=== PATIENT | female | born 1940 | race Two or more races ===

== ENCOUNTER 2017-11-09 04:16 | Emergency (ER) | payer OTHER ==
--- NOTE | 2017-11-09 04:44 | ER ---
Nurse's Notes [facility] Name: Héctor Vail Age: 77 yrs Sex: Female : 1940 Arrival Date: 11/09/2017 Time: 04:21 Bed 5 Private MD: Liane Benitez C Diagnosis: Other chest pain;Gastro-esophageal reflux disease;Unspecified kidney failure Presentation: 11/09 04:22 Presenting complaint: Patient states: "I am having chest pain and my stomach hurts, my bs1 chest started hurting at midnight and my stomach yesterday around 3pm." Patient denies chest pain radiating, denies numbness or tingling. 04:22 Transition of care: patient was not received from another setting of care. Onset of bs1 symptoms was November 09, 2017. Risk Assessment: Do you want to hurt yourself or someone else? Patient reports no desire to harm self or others. Initial Sepsis Screen: Does the patient meet any 2 criteria? No. Patient's initial sepsis screen is negative. Does the patient have a suspected source of infection? No. Patient's initial sepsis screen is negative. Care prior to arrival: Medication(s) given: mylanta/omperazole. 04:22 Method Of Arrival: Wheelchair bs1 04:22 Acuity: JUICE 3 bs1 Historical: - Allergies: 04:52 No Known Allergies; bs1 - Home Meds: 04:52 losartan 50 mg oral tab [Active]; levothyroxine 50 mcg tab 1 tab once daily [Active]; bs1 amlodipine 5 mg tab 1 tab once daily [Active]; metoprolol tartrate 25 mg Oral tab 1 tab 2 times per day [Active]; - PMHx: 04:52 High Cholesterol; Hypertension; Hypothyroidism; bs1 - PSHx: 04:52 bilateral knee replacement; Tubal ligation; bs1 - Immunization history:: Adult Immunizations up to date. - Social history:: Smoking status: Patient/guardian denies using tobacco. - Family history:: not pertinent. - Ebola Screening: : Patient negative for fever greater than or equal to 101.5 degrees Fahrenheit, and additional compatible Ebola Virus Disease symptoms Patient denies exposure to infectious person. Screenin:18 Abuse screen: Denies threats or abuse. Denies injuries from another. Nutritional bs1 screening: No deficits noted. Tuberculosis screening: No symptoms or risk factors identified. Fall Risk None identified. Assessment: 04:30 General: Appears in no apparent distress. uncomfortable, Behavior is calm, cooperative, bs1 appropriate for age. Pain: Complains of pain in left lower quadrant and right lower quadrant, mid chest/epigastric area Pain does not radiate. Pain began at midnight. 04:30 Neuro: Level of Consciousness is awake, alert, obeys commands, Oriented to person, bs1 place, time, situation, Appropriate for age. Cardiovascular: Reports chest pain, shortness of breath, Denies nausea, Heart tones S1 S2 present Capillary refill < 3 seconds Patient's skin is warm and dry. Respiratory: Airway is patent Trachea midline Respiratory effort is even, unlabored, Respiratory pattern is regular, symmetrical, Breath sounds are clear bilaterally. GI: Abdomen is round non-distended, Bowel sounds present X 4 quads. Abdomen is tender to palpation in left lower quadrant and right lower quadrant Reports lower abdominal pain, epigastric pain, heartburn. : No signs and/or symptoms were reported regarding the genitourinary system. EENT: No signs and/or symptoms were reported regarding the EENT system. Derm: Skin is intact, Skin is pink, warm \\T\\ dry. normal. Musculoskeletal: Circulation, motion, and sensation intact. Capillary refill < 3 seconds, Range of motion: intact in all extremities. 05:15 Reassessment: Patient finished PO contrast at 0505, informed CT. bs1 06:10 Reassessment: Patient appears in no apparent distress at this time. Patient and/or bs1 family updated on plan of care and expected duration. Pain level reassessed. Patient is alert, oriented x 3, equal unlabored respirations, skin warm/dry/pink. Informed patient and family pending lab results/CT scan. No further needs at this time. 07:04 Reassessment: Patient appears in no apparent distress at this time. Patient and/or ph family updated on plan of care and expected duration. Pain level reassessed. Patient is alert, oriented x 3, equal unlabored respirations, skin warm/dry/pink. Pt ambulated to restroom w/ steady gait, denies dizziness or SOB, awaiting room assignment, family at bedside. 07:40 Reassessment: Patient appears in no apparent distress at this time. Patient and/or ph family updated on plan of care and expected duration. Pain level reassessed. Patient is alert, oriented x 3, equal unlabored respirations, skin warm/dry/pink. Pt resting quietly, reports that pain has improved, denies nausea at this time, awaiting completion of IV fluids before d/c. 08:12 Reassessment: Patient appears in no apparent distress at this time. Patient and/or hb family updated on plan of care and expected duration. Pain level reassessed. Patient is alert, oriented x 3, equal unlabored respirations, skin warm/dry/pink. IV fluids complete, pt d/c home w/ family. Vital Signs: 04:30 BP 130 / 91; Pulse 80; Resp 16; Temp 97.8(T); Pulse Ox 93% on R/A; Weight 77.56 kg; bs1 Height 4 ft. 11 in. (149.86 cm); Pain 6/10; 04:45 BP 129 / 69; Pulse 75; Resp 16 S; Pulse Ox 95% on R/A; bs1 05:15 BP 115 / 68; Pulse 72; Resp 17 S; Pulse Ox 96% on R/A; bs1 05:45 BP 123 / 78; Pulse 66; Resp 16 S; Pulse Ox 94% on R/A; bs1 06:00 BP 128 / 70; Pulse 68; Resp 15 S; Temp 98(T); Pulse Ox 100% ; Pain 0/10; bs1 06:45 BP 109 / 64; Pulse 68; Resp 17; Pulse Ox 96% on R/A; bs1 04:30 Body Mass Index 34.54 (77.56 kg, 149.86 cm) bs1 ED Course: 04:21 Patient arrived in ED. al2 04:21 Liane Benitez MD is Private Physician. al2 04:22 Arm band placed on left wrist. bs1 04:25 Patient has correct armband on for positive identification. Placed in gown. Bed in low bs1 position. Call light in reach. Side rails up X 1. dietitian on. Pulse ox on. NIBP on. 04:25 Warm blanket given. bs1 04:30 EKG completed in triage. Results shown to . bs1 04:39 EKG done, by ED staff, reviewed by Damien Arteaga MD. Inserted saline lock: 20 gauge in mt right antecubital area, using aseptic technique. Blood collected. 04:43 Flakita Loera RN is Primary Nurse. bs1 04:43 Liane Benitez MD is Hospitalizing Provider. oswaldo 04:47 Triage completed. bs1 04:47 X-ray completed. Portable x-ray completed in exam room. Patient tolerated procedure kw well. 04:48 Damien Arteaga MD is Attending Physician. oswaldo 04:48 XRAY Chest (1 view) In Process Unspecified. EDMS 04:50 Oral contrast given. eh 05:18 Patient maintains SpO2 saturation greater than 95% on room air. bs1 06:47 CT completed. Patient tolerated procedure well. Patient moved to CT via stretcher. Patient moved back from CT. 07:38 Liane Benitez MD is Referral Physician. oswaldo 07:45 No provider procedures requiring assistance completed. ph 08:13 IV discontinued, intact, bleeding controlled, No redness/swelling at site. Pressure hb dressing applied. Administered Medications: 05:10 Drug: Zofran 4 mg Route: IVP; Site: right antecubital; bs1 05:22 Follow up: Response: No adverse reaction bs1 05:14 Drug: NS 0.9% 1000 ml Route: IV; Rate: 125 ml/hr; Site: right antecubital; bs1 05:14 Not Given (Patient Refused): morphine 2 mg IVP once bs1 05:15 Drug: ProTONIX 40 mg Route: IVP; Site: right antecubital; bs1 05:22 Follow up: Response: No adverse reaction bs1 06:54 Drug: NS 0.9% 500 ml Volume: 500 ml; Route: IV; Rate: 1 bolus; Site: right antecubital; bs1 07:39 Follow up: Response: No adverse reaction; IV Status: Completed infusion ph 06:54 Drug: ProTONIX 40 mg Route: IVP; Site: right antecubital; bs1 07:40 Follow up: Response: No adverse reaction ph 07:39 Drug: NS 0.9% 500 ml Route: IV; Rate: bolus; Site: right antecubital; ph 08:13 Follow up: Response: No adverse reaction; IV Status: Completed infusion hb Outcome: 04:44 Decision to Hospitalize by Provider. oswaldo 07:38 Discharge ordered by . oswaldo 08:13 Discharged to home via wheelchair, with family. hb 08:13 Condition: good 08:13 Discharge instructions given to patient, family, Instructed on discharge instructions, follow up and referral plans. medication usage, Demonstrated understanding of instructions, follow-up care, medications, Prescriptions given X 1. 08:14 Patient left the ED. Signatures: Dispatcher [employer] EDMS Damien Arteaga MD MD cha Hagler, Ervin eh Whitley, Kimberlee kw Hall, Patricia, RN RN April Durand RN RN hb Thompson, Moriah mt Salazar, Brittany, RN RN bs1 Tasha, Aurora dominguez Corrections: (The following items were deleted from the chart) 04:47 04:26 Presenting complaint: Patient states: "I am having chest pain and my stomach bs1 hurts, my chest started hurting at midnight and my stomach yesterday around 3pm." Patient denies chest pain radiating, denies numbness or tingling. bs1
--- NOTE | 2017-11-09 04:44 | EDPHYS ---
Physician Documentation [facility] Name: Héctor Vail Age: 77 yrs Sex: Female : 1940 Arrival Date: 11/09/2017 Time: 04:21 Bed 5 Private MD: Liane Benitez C ED Physician Damien Arteaga HPI: 11/09 04:37 This 77 yrs old Other Female presents to ER via Unassigned with complaints of Chest oswaldo Pain. 04:37 The patient or guardian reports chest pain that is located primarily in the anterior oswaldo chest wall. Onset: yesterday. The pain radiates to Associated signs and symptoms: The patient has no apparent associated signs or symptoms. The chest pain is described as burning. Modifying factors: The symptoms are alleviated by antacids, the symptoms are aggravated by nothing. Severity of pain: At its worst the pain was mild moderate in the emergency department the pain is unchanged. Historical: - Allergies: 04:52 No Known Allergies; bs1 - Home Meds: 04:52 losartan 50 mg oral tab [Active]; levothyroxine 50 mcg tab 1 tab once daily [Active]; bs1 amlodipine 5 mg tab 1 tab once daily [Active]; metoprolol tartrate 25 mg Oral tab 1 tab 2 times per day [Active]; - PMHx: 04:52 High Cholesterol; Hypertension; Hypothyroidism; bs1 - PSHx: 04:52 bilateral knee replacement; Tubal ligation; bs1 - Immunization history:: Adult Immunizations up to date. - Social history:: Smoking status: Patient/guardian denies using tobacco. - Family history:: not pertinent. - Ebola Screening: : Patient negative for fever greater than or equal to 101.5 degrees Fahrenheit, and additional compatible Ebola Virus Disease symptoms Patient denies exposure to infectious person. ROS: 04:37 Constitutional: Negative for fever, chills, and weight loss, Eyes: Negative for injury, oswaldo pain, redness, and discharge, ENT: Negative for injury, pain, and discharge, Neck: Negative for injury, pain, and swelling, Respiratory: Negative for shortness of breath, cough, wheezing, and pleuritic chest pain, Back: Negative for injury and pain, : Negative for injury, bleeding, discharge, and swelling, MS/Extremity: Negative for injury and deformity, Skin: Negative for injury, rash, and discoloration, Neuro: Negative for headache, weakness, numbness, tingling, and seizure, Psych: Negative for depression, anxiety, suicide ideation, homicidal ideation, and hallucinations, Allergy/Immunology: Negative for hives, rash, and allergies, Endocrine: Negative for neck swelling, polydipsia, polyuria, polyphagia, and marked weight changes, Hematologic/Lymphatic: Negative for swollen nodes, abnormal bleeding, and unusual bruising. 04:37 Cardiovascular: Positive for chest pain. 04:37 Abdomen/GI: Positive for abdominal pain, of the right lower quadrant and left lower quadrant. Exam: 04:37 Constitutional: This is a well developed, well nourished patient who is awake, alert, oswaldo and in no acute distress. Head/Face: Normocephalic, atraumatic. Eyes: Pupils equal round and reactive to light, extra-ocular motions intact. Lids and lashes normal. Conjunctiva and sclera are non-icteric and not injected. Cornea within normal limits. Periorbital areas with no swelling, redness, or edema. ENT: Nares patent. No nasal discharge, no septal abnormalities noted. Tympanic membranes are normal and external auditory canals are clear. Oropharynx with no redness, swelling, or masses, exudates, or evidence of obstruction, uvula midline. Mucous membranes moist. Neck: Trachea midline, no thyromegaly or masses palpated, and no cervical lymphadenopathy. Supple, full range of motion without nuchal rigidity, or vertebral point tenderness. No Meningismus. Chest/axilla: Normal chest wall appearance and motion. Nontender with no deformity. No lesions are appreciated. Cardiovascular: Regular rate and rhythm with a normal S1 and S2. No gallops, murmurs, or rubs. Normal PMI, no JVD. No pulse deficits. Respiratory: Lungs have equal breath sounds bilaterally, clear to auscultation and percussion. No rales, rhonchi or wheezes noted. No increased work of breathing, no retractions or nasal flaring. Back: No spinal tenderness. No costovertebral tenderness. Full range of motion. Skin: Warm, dry with normal turgor. Normal color with no rashes, no lesions, and no evidence of cellulitis. MS/ Extremity: Pulses equal, no cyanosis. Neurovascular intact. Full, normal range of motion. Neuro: Awake and alert, GCS 15, oriented to person, place, time, and situation. Cranial nerves II-XII grossly intact. Motor strength 5/5 in all extremities. Sensory grossly intact. Cerebellar exam normal. Normal gait. Psych: Awake, alert, with orientation to person, place and time. Behavior, mood, and affect are within normal limits. 04:37 Abdomen/GI: Inspection: abdomen appears normal, Bowel sounds: normal, Palpation: mild abdominal tenderness, in the right lower quadrant and left lower quadrant, Liver: no appreciated palpable abnormalities, Hernia: not appreciated. Vital Signs: 04:30 BP 130 / 91; Pulse 80; Resp 16; Temp 97.8(T); Pulse Ox 93% on R/A; Weight 77.56 kg; bs1 Height 4 ft. 11 in. (149.86 cm); Pain 6/10; 04:45 BP 129 / 69; Pulse 75; Resp 16 S; Pulse Ox 95% on R/A; bs1 05:15 BP 115 / 68; Pulse 72; Resp 17 S; Pulse Ox 96% on R/A; bs1 05:45 BP 123 / 78; Pulse 66; Resp 16 S; Pulse Ox 94% on R/A; bs1 06:00 BP 128 / 70; Pulse 68; Resp 15 S; Temp 98(T); Pulse Ox 100% ; Pain 0/10; bs1 06:45 BP 109 / 64; Pulse 68; Resp 17; Pulse Ox 96% on R/A; bs1 04:30 Body Mass Index 34.54 (77.56 kg, 149.86 cm) bs1 MDM: 04:42 Data reviewed: vital signs, nurses notes, lab test result(s), EKG, radiologic studies, [facility] CT scan, plain films. 04:44 Patient medically screened. [facility] 11/09 04:37 Order name: Basic Metabolic Panel; Complete Time: 06:11 [facility] 11/09 04:37 Order name: CBC with Diff; Complete Time: 06:11 [facility] 11/09 04:37 Order name: Ckmb; Complete Time: 06:11 [facility] 11/09 04:37 Order name: CPK; Complete Time: 06:11 [facility] 11/09 04:37 Order name: LFT's; Complete Time: 06:11 [facility] 11/09 04:37 Order name: Magnesium; Complete Time: 06:11 [facility] 11/09 04:37 Order name: NT PRO-BNP; Complete Time: 06:11 [facility] 11/09 04:37 Order name: PT-INR; Complete Time: 06:11 [facility] 11/09 04:37 Order name: Ptt, Activated; Complete Time: 06:11 [facility] 11/09 04:37 Order name: Troponin (emerg Dept Use Only); Complete Time: 06:11 [facility] 11/09 04:37 Order name: Lipase; Complete Time: 06:11 [facility] 11/09 04:49 Order name: Basic Metabolic Panel [facility] 11/09 04:49 Order name: Troponin I [facility] 11/09 04:37 Order name: XRAY Chest (1 view); Complete Time: 07:37 [facility] 11/09 04:49 Order name: Troponin I [facility] 11/09 04:49 Order name: Troponin I [facility] 11/09 04:49 Order name: CBC with Automated Diff [facility] 11/09 04:49 Order name: Chest Single View [facility] 11/09 06:13 Order name: Chest Abdomen Pelvis Wo Con CT [facility] 11/09 06:20 Order name: Ckmb [facility] 11/09 06:20 Order name: Creatine Phosphokinase [facility] 11/09 06:20 Order name: Troponin (emerg Dept Use Only) [facility] 11/09 06:47 Order name: Urine Dipstick--Ancillary (enter results) [facility] 11/09 07:31 Order name: Troponin (Emerg Dept Use Only); Complete Time: 07:37 [facility] 11/09 07:32 Order name: Creatine Phosphokinase; Complete Time: 07:37 [facility] 11/09 07:32 Order name: CKMB Creatine Kinase MB; Complete Time: 07:37 [facility] 11/09 04:37 Order name: EKG; Complete Time: 04:38 [facility] 11/09 04:37 Order name: Cardiac monitoring; Complete Time: 04:40 [facility] 11/09 04:37 Order name: EKG - Nurse/Tech; Complete Time: 04:40 [facility] 11/09 04:37 Order name: IV Saline Lock; Complete Time: 04:40 [facility] 11/09 04:37 Order name: Labs collected and sent; Complete Time: 04:40 [facility] 11/09 04:37 Order name: O2 Per Protocol; Complete Time: 04:40 [facility] 11/09 04:37 Order name: O2 Sat Monitoring; Complete Time: 04:40 [facility] 11/09 04:37 Order name: Urine Dipstick-Ancillary (obtain specimen); Complete Time: 06:34 [facility] 11/09 04:49 Order name: CONS Physician Consult [facility] 11/09 04:49 Order name: Regular [facility] 11/09 04:49 Order name: EKG Electrocardiogram [facility] 11/09 04:49 Order name: EKG Electrocardiogram [facility] 11/09 04:49 Order name: EKG Electrocardiogram [facility] 11/09 06:20 Order name: Repeat Cardiac Enzymes at: 630am; Complete Time: 06:54 [facility] 11/09 07:08 Order name: CT; Complete Time: 07:20 EDMS Administered Medications: 05:10 Drug: Zofran 4 mg Route: IVP; Site: right antecubital; bs1 05:22 Follow up: Response: No adverse reaction bs1 05:14 Drug: NS 0.9% 1000 ml Route: IV; Rate: 125 ml/hr; Site: right antecubital; bs1 05:14 Not Given (Patient Refused): morphine 2 mg IVP once bs1 05:15 Drug: ProTONIX 40 mg Route: IVP; Site: right antecubital; bs1 05:22 Follow up: Response: No adverse reaction bs1 06:54 Drug: NS 0.9% 500 ml Volume: 500 ml; Route: IV; Rate: 1 bolus; Site: right antecubital; bs1 07:39 Follow up: Response: No adverse reaction; IV Status: Completed infusion ph 06:54 Drug: ProTONIX 40 mg Route: IVP; Site: right antecubital; bs1 07:40 Follow up: Response: No adverse reaction ph 07:39 Drug: NS 0.9% 500 ml Route: IV; Rate: bolus; Site: right antecubital; ph 08:13 Follow up: Response: No adverse reaction; IV Status: Completed infusion hb Disposition: 11/09/17 07:38 Discharged to Home. Impression: Other chest pain, Gastro-esophageal reflux disease, Unspecified kidney failure. - Condition is Stable. - Discharge Instructions: Nonspecific Chest Pain, Food Choices for Gastroesophageal Reflux Disease, Adult, Nonspecific Chest Pain, [id number], Chronic Kidney Disease, Adult, [id number], Food Choices for Gastroesophageal Reflux Disease, Adult, [id number]. - Prescriptions for Protonix 40 mg Oral Tablet - take 1 tablet by ORAL route once daily; 30 tablet. - Medication Reconciliation Form, Thank You Letter, Antibiotic Education, Prescription Opioid Use form. - Follow up: Liane Benitez; When: 2 - 3 days; Reason: Recheck today's complaints, Continuance of care, Re-evaluation by your physician. - Problem is new. - Symptoms have improved. Signatures: Dispatcher [employer] EDME Claritza Kim RN RN mw Anderson, Corey, MD MD cha Hall, Patricia, RN RN April Durand RN RN Flakita Loera RN RN bs1 Corrections: (The following items were deleted from the chart) 04:48 04:44 Hospitalization Ordered by A Emmanuel HALL for Observation. Preliminary diagnosis is oswaldo Chest pain, unspecified; Abdominal tenderness; Gastro-esophageal reflux disease. Bed requested for Telemetry/MedSurg (observation). Status is Observation. Condition is Stable. Problem is new. Symptoms have improved. UTI on Admission? No. [facility] 05:07 04:48 11/09/2017 04:44 Hospitalization Ordered by A Emmanuel HALL for Observation. Preliminary diagnosis is Chest pain, unspecified; Abdominal tenderness; Gastro-esophageal reflux disease. Bed requested for Telemetry/MedSurg (observation). Status is Observation. Condition is Stable. Problem is new. Symptoms have improved. UTI on Admission? Yes. [facility] 06:15 05:07 11/09/2017 04:44 Hospitalization Ordered by A Emmanuel HALL for Observation. [facility] Preliminary diagnosis is Chest pain, unspecified; Abdominal tenderness; Gastro-esophageal reflux disease. Bed requested for Telemetry/MedSurg (observation). Status is Observation. Condition is Stable. Problem is new. Symptoms have improved. UTI on Admission? Yes. 08:14 07:38 11/09/2017 07:38 Discharged to Home. Impression: Other chest pain; hb Gastro-esophageal reflux disease; Unspecified kidney failure. Condition is Stable. Discharge Instructions: Nonspecific Chest Pain, Food Choices for Gastroesophageal Reflux Disease, Adult, Nonspecific Chest Pain, [id number], Food Choices for Gastroesophageal Reflux Disease, Adult, [id number]. Prescriptions for Protonix 40 mg Oral Tablet - take 1 tablet by ORAL route once daily; 30 tablet. and Forms are Medication Reconciliation Form, Thank You Letter, Antibiotic Education, Prescription Opioid Use. Follow up: Liane Benitez; When: 2 - 3 days; Reason: Recheck today's complaints, Continuance of care, Re-evaluation by your physician. Problem is new. Symptoms have improved. oswaldo
[2017-11-09] MEDS ORDERED: MORPHINE 2 MG/ML SYR IV PRN (04:46)
[2017-11-09] MEDS ORDERED: ACETAMINOPHEN 500 MG TAB PO PRN (04:46)
[2017-11-09] MEDS ORDERED: ONDANSETRON 4 MG/2 ML VIAL IV PRN (04:46)
[2017-11-09] MEDS ORDERED: SODIUM CHLORIDE 0.9% 10ML INJ IV PRN (04:47)
[2017-11-09] MEDS ORDERED: NA CHLORIDE 0.9% 1,000 ML ONE (04:58)
[2017-11-09] MEDS ORDERED: MORPHINE 4 MG/ML SYR ONE (05:01)
[2017-11-09 05:20] LABS: Absolute Lymphocytes (CBC) 1.1 K/uL (0.7-4.9); Absolute Monocytes 0.9 K/uL (0.1-1.3); Absolute Neutrophil 8.6 K/uL (1.8-8.0); Basophils % 0.9 % (0-1.3); Eosinophils % 1.4 % (0-4.4); Hematocrit 45.6 % (36.0-45.0); Lymphocytes % 10.2 % (15.3-44.8); MCH 31.2 pg (27.0-35.0); MCV 91.3 fL (80-100); MPV 10.4 fL (7.6-11.3)
[2017-11-09 05:23] LABS: Protime INR 0.99
[2017-11-09 05:59] LABS: Albumin 3.4 g/dL (3.4-5.0); Bilirubin Direct 0.1 mg/dL (0-0.2); Bilirubin Total 0.3 mg/dL (0.2-1.0); Magnesium 2.4 mg/dL (1.8-2.4); Potassium 4.2 mmol/L (3.5-5.1)
--- NOTE | 2017-11-09 07:08 | RAD REPORT ---
EXAM DESCRIPTION: CT - Chest Abd Pelvis Wo Con - 11/09/2017 6:41 am CLINICAL HISTORY: Chest pain, abdominal pain COMPARISON: Portable chest same date, CT chest November 2014 TECHNIQUE: During dynamic enhancement using 100 milliliters nonionic IV contrast, axial 5 millimeter thick images of the chest, abdomen and pelvis were obtained. Biphasic technique was utilized through the abdomen. Oral contrast was administered. All CT scans are performed using dose optimization technique as appropriate and may include automated exposure control or mA/KV adjustment according to patient size. FINDINGS: The lungs are clear of mass and infiltrate. Minimal scarring changes are present. No pneum othorax or pleural effusion. No chest wall mass or abnormal axillary lymphadenopathy seen. Mediasti nal and hilar regions show no mass or lymphadenopathy. No significant cardiac finding. The liver, spleen and pancreas show no significant findings. Gallbladder and biliary tree are normal . Gallstones can be occult on CT imaging. No hydronephrosis. No acute obstructing or nonobstructing calculi. Right kidney is much smaller than the left. This was evident on the prior study as well. A 2.5 centimeter low-attenuation mass (10 Houn sfield units) anterior upper pole left kidney is almost certainly a benign cyst. This is not clearly different from comparison. No adrenal abnormalities. Urinary bladder is tightly contracted limiting assessment. No bladder calculi. Uterus and ovaries show no acute or suspicious findings. No dilated bowel loops or focal ball bowel wall thickening. No free air, free fluid or inflammatory stranding. No hernia, mass or bulky lymphadenopathy. No significant bone or vascular finding. IMPRESSION: CT chest shows no infiltrate, mass or other suspicious finding. CT abdomen and pelvis show no emergent findings. Gallstones can be occult. Nonacute findings are deta iled in the body of the report.
--- NOTE | 2017-11-09 07:20 | RAD REPORT ---
EXAM DESCRIPTION: RAD - Chest Single View - 11/09/2017 4:50 am CLINICAL HISTORY: Chest pain COMPARISON: November 2014 TECHNIQUE: AP portable chest image was obtained 0437 hours . FINDINGS: Interstitial markings are prominent but not clearly different from comparison. No mass, co nsolidation or significant failure. Heart and vasculature are normal. No measurable pleural effusion and no pneumothorax. No gross bony abnormality seen. No acute aortic findings suspected. IMPRESSION: Chronic prominence of the interstitial markings. No failure, infiltrate or acute finding seen.
[2017-11-09 07:32] LABS: CKMB Creatine Kinase MB 1.8 ng/mL (0.3-3.6)
[2017-11-09 08:42] LABS: Urine Blood NEGATIVE (NEG); Urine Glucose NEGATIVE (NEG); Urine Protein NEGATIVE (NEG); Urine Specific Gravity 1.015 (1.005-1.030)
[2017-11-09] MEDS ORDERED: ASPIRIN EC 81 MG TAB PO SCH (09:00)
[2017-11-09] MEDS ORDERED: PANTOPRAZOLE 40 MG INJ IVP SCH (09:00)
--- NOTE | 2017-11-09 09:00 | EKG ---
Test Date: 2017-11-09 Test Time: 04:23:53 [employer] Account [employer]: LORA MEASUREMENT RESULTS: Intervals: Rate: 78 MA: 156 QRSD: 66 QT: 374 QTc: 426 [place]: P: 22 MA: 156 QRS: -4 T: 16 INTERPRETIVE STATEMENTS: Normal sinus rhythm Cannot rule out Anterior infarct, age undetermined Abnormal ECG Compared to ECG 05/19/2004 13:25:00 Myocardial infarct finding now present Electronically Signed On 11-09-17 09:00:21 CDT by Maxwell Munoz
== END 2017-11-09 08:14 | disposition home or self-care (01) ==
LOC: ER 04:16 → ERHOLD 04:45 → UNDOADMOB 04:45
DX: K21.9 Gastro-esophageal reflux disease without esophagitis (principal); N19 Unspecified kidney failure; I10 Essential (primary) hypertension; E78.00 Pure hypercholesterolemia, unspecified; E03.9 Hypothyroidism, unspecified
CPT/HCPCS: 36415; 71045; 71250; 74176; 80048; 80076; 81003; 82550 ×2; 82553 ×2; 83690; 83735; 83880; 84484 ×2; 85025; 85610; 85730; 93005; 96361; 96374; 96375; 99285; C9113 ×2; J2405; J7030